=== PATIENT | male | born 1960 | race African-American/Black ===

== ENCOUNTER 2017-09-14 11:04 | Emergency (ER) | payer MEDICAID ==
[~2017-09-14] VITALS: Ht 182.9 cm; Wt 92.0 kg
[2017-09-14 11:37] LABS: BASOPHILS % 0.8 % (0.0-2.0); HEMATOCRIT. 43.5 % (42.0-52.0); HEMOGLOBIN. 14.5 g/dL (14.0-18.0); LYMPHOCYTES % 42.5 % (20.0-50.0); MEAN CORPUSCULAR HEMOGLOBIN 31.3 pg (28.0-32.0); MEAN CORPUSCULAR VOLUME 93.8 fL (80.0-94.0); MEAN PLATELET VOLUME 7.1 fl (7.4-10.4); NEUTROPHILS % 47.7 % (40.0-76.0); PLATELET 262 x1000/uL (130-400); RED BLOOD CELL COUNT 4.63 mill/uL (4.7-6.1); RED CELL DISTRIBUTION WIDTH 12.8 % (11.6-14.6)
[2017-09-14 11:42] LABS: PROTHROMBIN TIME 10.7 sec (9.4-11.6)
[2017-09-14 11:50] LABS: CARBON DIOXIDE 25 mEq/L (21-32); CHLORIDE 108 mEq/L (98-107); ETHANOL BLOOD < 10 mg/dL
[2017-09-14 12:37] LABS: CLARITY URINE CLEAR (CLEAR); COLOR URINE YELLOW (YELLOW); GLUCOSE URINE NEGATIVE (NEGATIVE); KETONES URINE NEGATIVE (NEGATIVE); LEUKOCYTE ESTERASE URINE NEGATIVE (NEGATIVE); NITRITE URINE NEGATIVE (NEGATIVE); OCCULT BLOOD URINE 2+ (NEGATIVE); PROTEIN URINE NEGATIVE (NEGATIVE); SPECIFIC GRAVITY URINE 1.032 (1.005-1.030)
[2017-09-14 12:48] VITALS: BP 155/94
[2017-09-14 13:00] LABS: *AMPHETAMINES SCREEN URINE NEGATIVE (NEGATIVE); *BARBITURATES SCREEN URINE NEGATIVE (NEGATIVE); *BENZODIAZEPINES SCREEN URINE NEGATIVE (NEGATIVE); *COCAINE SCREEN URINE NEGATIVE (NEGATIVE); CANNABINOID URINE SCREEN NEGATIVE (NEGATIVE); METHADONE URINE SCREEN NEGATIVE (NEGATIVE); OPIATES URINE SCREEN PRESUMTIVE POSITIVE (NEGATIVE); PHENCYCLIDINE URINE SCREEN NEGATIVE (NEGATIVE)
== END 2017-09-14 12:50 | disposition home or self-care (01) ==
LOC: EDBD 11:10 → ER 11:10
DX: T40.601A Poisoning by unspecified narcotics, accidental (unintentional), initial encounter (principal); G93.40 Encephalopathy, unspecified; F17.200 Nicotine dependence, unspecified, uncomplicated; Y92.89 Other specified places as the place of occurrence of the external cause
CPT/HCPCS: 36415; 70450; 80053; 80305; 81001; 85025; 85610; 93005; 99285; G0482

== ENCOUNTER 2018-11-12 05:22 | Emergency (ER) | payer MEDICAID ==
[~2018-11-12] VITALS: Ht 175.3 cm; Wt 86.0 kg
[2018-11-12] MEDS ORDERED: ASPIRIN 81MG TABLET PO ONE (08:30)
[2018-11-12 09:05] LABS: BASOPHILS % 0.8 % (0.0-2.0); EOSINOPHILS % 0.3 % (0.0-5.0); HEMATOCRIT. 51.9 % (42.0-52.0); HEMOGLOBIN. 17.1 g/dL (14.0-18.0); LYMPHOCYTES % 25.5 % (20.0-50.0); MEAN CORPUSCULAR HEMOGLOBIN 31.4 pg (28.0-32.0); MEAN CORPUSCULAR VOLUME 95.2 fL (80.0-94.0); MEAN PLATELET VOLUME 7.6 fl (7.4-10.4); MONOCYTES % 9.3 % (2.0-8.0); NEUTROPHILS % 64.1 % (40.0-76.0); PLATELET 287 x1000/uL (130-400); RED BLOOD CELL COUNT 5.45 mill/uL (4.7-6.1); RED CELL DISTRIBUTION WIDTH 14.6 % (11.6-14.6)
[2018-11-12 09:12] LABS: CHLORIDE 107 mEq/L (98-107)
[2018-11-12 09:48] LABS: PARTIAL THROMBOPLASTIN TIME 27.8 sec (23.4-31.0); PROTHROMBIN TIME 10.3 sec (9.1-11.1)
[2018-11-12 13:26] VITALS: BP 136/75
== END 2018-11-12 13:26 | disposition left against medical advice (07) ==
LOC: ER 05:22
DX: R07.89 Other chest pain (principal); F41.9 Anxiety disorder, unspecified; K21.9 Gastro-esophageal reflux disease without esophagitis; I10 Essential (primary) hypertension; F12.10 Cannabis abuse, uncomplicated; Z98.890 Other specified postprocedural states
CPT/HCPCS: 36415; 71045; 84484; 87804; 93005; 99284

== ENCOUNTER 2018-12-25 15:01 | Inpatient (IN) | payer MEDICAID ==
[~2018-12-25] VITALS: Ht 320 cm; Wt 86.2 kg
[2018-12-26] MEDS ORDERED: ASPIRIN 81MG TABLET PO ONE (06:45)
[2018-12-26 06:47] LABS: BASOPHILS % 1.2 % (0.0-2.0); HEMATOCRIT. 42.8 % (42.0-52.0); HEMOGLOBIN. 14.5 g/dL (14.0-18.0); MEAN CORPUSCULAR HEMOGLOBIN 32.4 pg (28.0-32.0); MEAN PLATELET VOLUME 7.7 fl (7.4-10.4); MONOCYTES % 8.1 % (2.0-8.0); NEUTROPHILS % 41.7 % (40.0-76.0); PLATELET 251 x1000/uL (130-400); RED BLOOD CELL COUNT 4.46 mill/uL (4.7-6.1); RED CELL DISTRIBUTION WIDTH 13.5 % (11.6-14.6)
[2018-12-26 06:48] LABS: CHLORIDE 108 mEq/L (98-107)
[2018-12-26 06:56] LABS: PROTHROMBIN TIME 9.8 sec (9.1-11.1)
[2018-12-26 10:25] LABS: CLARITY URINE CLEAR (CLEAR); COLOR URINE YELLOW (YELLOW); KETONES URINE TRACE (NEGATIVE); LEUKOCYTE ESTERASE URINE NEGATIVE (NEGATIVE); NITRITE URINE NEGATIVE (NEGATIVE); OCCULT BLOOD URINE NEGATIVE (NEGATIVE); PH URINE 5.5 (4.5-8.0); PROTEIN URINE NEGATIVE (NEGATIVE); SPECIFIC GRAVITY URINE 1.024 (1.005-1.030)
[2018-12-26 10:42] LABS: *AMPHETAMINES SCREEN URINE NEGATIVE (NEGATIVE); *BARBITURATES SCREEN URINE NEGATIVE (NEGATIVE); *BENZODIAZEPINES SCREEN URINE NEGATIVE (NEGATIVE)
[2018-12-26 10:43] LABS: *COCAINE SCREEN URINE NEGATIVE (NEGATIVE); CANNABINOID URINE SCREEN PRESUMTIVE POSITIVE (NEGATIVE); METHADONE URINE SCREEN NEGATIVE (NEGATIVE); OPIATES URINE SCREEN NEGATIVE (NEGATIVE); PHENCYCLIDINE URINE SCREEN PRESUMTIVE POSITIVE (NEGATIVE)
[2018-12-26] MEDS ORDERED: ONDANSETRON HCL 4MG/2ML INJ IV PRN (12:15)
[2018-12-26] MEDS ORDERED: ENOXAPARIN 40MG/0.4ML SYR SUBCUT NR (12:15)
[2018-12-26] MEDS ORDERED: LISI-604 MT (13:16)
[2018-12-26] MEDS ORDERED: ASPI-1159 MT (13:16)
[2018-12-26] MEDS ORDERED: ALPR2TAB2 MT (13:16)
[2018-12-26] MEDS ORDERED: HYDR-4009 MT (13:16)
[2018-12-26] MEDS ORDERED: OMEP40CA34 MT (13:16)
[2018-12-26] MEDS: ENOXAPARIN 40MG/0.4ML SYR SUBCUT NR (14:32)
[2018-12-26] MEDS: LISINOPRIL 20MG TABLET PO SCH (14:32)
[2018-12-26] MEDS: CLOPIDOGREL 75MG TABLET PO SCH (14:32)
[2018-12-26] MEDS: AMLODIPINE 5MG TABLET PO SCH ×2 (14:33→20:39)
[2018-12-26 15:00] VITALS: BP_SYST 141; BP_SYST 148; BP_DIAS 86; BP_DIAS 96
[2018-12-26 16:00] VITALS: BP 148/86
[2018-12-26 20:00] VITALS: BP 153/91
[2018-12-26] MEDS: ATORVASTATIN CALCIUM 10MG TABLET PO SCH (20:39)
[2018-12-26] MEDS: HYDROCODONE/ACETAMINOPHEN 5/325MG TABLET PO PRN (20:40)
[2018-12-26] MEDS: ALPRAZOLAM 0.5 MG TABLET PO PRN (21:33)
[2018-12-27 04:50] VITALS: BP 115/80
[2018-12-27 06:49] LABS: HEMATOCRIT. 43.4 % (42.0-52.0); HEMOGLOBIN. 14.4 g/dL (14.0-18.0); MEAN CORPUSCULAR HEMOGLOBIN 31.6 pg (28.0-32.0); MEAN CORPUSCULAR VOLUME 95.1 fL (80.0-94.0); MEAN PLATELET VOLUME 7.4 fl (7.4-10.4); PLATELET 260 x1000/uL (130-400); RED BLOOD CELL COUNT 4.56 mill/uL (4.7-6.1); RED CELL DISTRIBUTION WIDTH 13.4 % (11.6-14.6)
[2018-12-27 07:14] LABS: CHLORIDE 107 mEq/L (98-107)
[2018-12-27 07:21] LABS: LDL CHOLESTEROL 101 mg/dL (5-100)
[2018-12-27 07:22] LABS: HDL CHOLESTEROL 59 mg/dL (40-59)
[2018-12-27 08:00] VITALS: BP 126/80
[2018-12-27] MEDS: LISINOPRIL 20MG TABLET PO SCH (08:21)
[2018-12-27] MEDS: ASPIRIN 81MG EC TABLET PO SCH (08:21)
[2018-12-27] MEDS: AMLODIPINE 5MG TABLET PO SCH ×2 (08:21→20:43)
[2018-12-27] MEDS: CLOPIDOGREL 75MG TABLET PO SCH (08:21)
[2018-12-27] MEDS: HYDROCODONE/ACETAMINOPHEN 5/325MG TABLET PO PRN ×3 (08:22→20:44)
[2018-12-27 11:40] LABS: PLATELET ESTIMATE NORMAL
[2018-12-27 12:00] VITALS: BP 104/57
[2018-12-27] MEDS: ENOXAPARIN 40MG/0.4ML SYR SUBCUT NR (15:57)
[2018-12-27 16:00] VITALS: BP 109/64
[2018-12-27 20:00] VITALS: BP 115/72
[2018-12-27] MEDS: ATORVASTATIN CALCIUM 10MG TABLET PO SCH (20:44)
[2018-12-27] MEDS: ALPRAZOLAM 0.5 MG TABLET PO PRN (20:44)
[2018-12-28] VITALS: BP 110/76
[2018-12-28 04:00] VITALS: BP 116/79
[2018-12-28 08:00] VITALS: BP 108/71
[2018-12-28] MEDS: ASPIRIN 81MG EC TABLET PO SCH (08:18)
[2018-12-28] MEDS: HYDROCODONE/ACETAMINOPHEN 5/325MG TABLET PO PRN (08:24)
[2018-12-28] MEDS: AMLODIPINE 5MG TABLET PO SCH (09:00)
[2018-12-28] MEDS: LISINOPRIL 20MG TABLET PO SCH (09:00)
[2018-12-28] MEDS: CLOPIDOGREL 75MG TABLET PO SCH (09:46)
[2018-12-28 10:19] VITALS: BP 108/71
== END 2018-12-28 12:56 | disposition home or self-care (01) | DRG 203 ==
LOC: ER 16:16 → 6WST 12-26 08:55 → EDBEDREQTM 12-26 08:57 → EDBEDREQ 12-26 08:57 → ENRESERV 12-26 09:22
PROVIDERS: ADMIT Internal Medicine; ATTEND Internal Medicine
DX: M94.0 Chondrocostal junction syndrome [Tietze] (principal); E83.51 Hypocalcemia; E78.5 Hyperlipidemia, unspecified; G89.29 Other chronic pain; F41.9 Anxiety disorder, unspecified; F12.90 Cannabis use, unspecified, uncomplicated; K21.9 Gastro-esophageal reflux disease without esophagitis; M54.9 Dorsalgia, unspecified; I10 Essential (primary) hypertension; Z82.3 Family history of stroke; Z82.49 Family history of ischemic heart disease and other diseases of the circulatory system; Z95.5 Presence of coronary angioplasty implant and graft; Z79.02 Long term (current) use of antithrombotics/antiplatelets; Z83.3 Family history of diabetes mellitus; Z91.19 Patient's noncompliance with other medical treatment and regimen; Z79.01 Long term (current) use of anticoagulants; Z79.82 Long term (current) use of aspirin; Z79.899 Other long term (current) drug therapy
CPT/HCPCS: 36415; 71045; 80061; 80305; 83036; 83735; 83880; 84484; 85007; 85027; 93005; 93306; 96372; 99285; J1650

== ENCOUNTER 2019-04-01 09:15 | Emergency (ER) | payer MEDICAID ==
[~2019-04-01] VITALS: Ht 182.9 cm; Wt 83.0 kg
[~2019-04-01 09:15] MED LIST: ALPR2TAB2 MT; ASPI-1393 MT; HYDR-4009 MT; LISI-604 MT; OMEP40CA34 MT
[2019-04-01 10:26] LABS: BASOPHILS % 1.1 % (0.0-2.0); EOSINOPHILS % 0.8 % (0.0-5.0); HEMATOCRIT. 40.8 % (42.0-52.0); HEMOGLOBIN. 13.7 g/dL (14.0-18.0); LYMPHOCYTES % 49.5 % (20.0-50.0); MEAN CORPUSCULAR HEMOGLOBIN 32.4 pg (28.0-32.0); MEAN CORPUSCULAR VOLUME 96.2 fL (80.0-94.0); MEAN PLATELET VOLUME 7.1 fl (7.4-10.4); MONOCYTES % 9.2 % (2.0-8.0); NEUTROPHILS % 39.4 % (40.0-76.0); PLATELET 275 x1000/uL (130-400); RED BLOOD CELL COUNT 4.24 mill/uL (4.7-6.1); RED CELL DISTRIBUTION WIDTH 13.1 % (11.6-14.6)
[2019-04-01 10:28] LABS: CHLORIDE 105 mEq/L (98-107)
[2019-04-01] MEDS ORDERED: KETOROLAC 30MG/ML VIAL IV ONE (11:15)
[2019-04-01] MEDS ORDERED: KETOROLAC 15MG/ML VIAL IV NR (11:15)
[2019-04-01] MEDS ORDERED: HYDROCODONE/ACETAMINOPHEN 5/325MG TABLET PO ONE (11:45)
[2019-04-01 14:00] VITALS: BP 145/95
== END 2019-04-01 14:30 | disposition home or self-care (01) ==
LOC: ER 09:15
DX: R07.9 Chest pain, unspecified (principal); I10 Essential (primary) hypertension; K21.9 Gastro-esophageal reflux disease without esophagitis; F17.200 Nicotine dependence, unspecified, uncomplicated; F41.9 Anxiety disorder, unspecified; F12.10 Cannabis abuse, uncomplicated; F16.10 Hallucinogen abuse, uncomplicated; Z79.899 Other long term (current) drug therapy
CPT/HCPCS: 36415; 71045; 80053; 83690; 83880; 84484; 85025; 93005; 99284; J1885; Z7610

== ENCOUNTER 2019-08-08 16:12 | Emergency (ER) | payer MEDICAID ==
[~2019-08-08] VITALS: Ht 172.7 cm; Wt 88.0 kg
[2019-08-08 21:04] VITALS: BP 159/96
== END 2019-08-08 21:05 | disposition home or self-care (01) ==
LOC: ER 16:12
DX: J06.9 Acute upper respiratory infection, unspecified (principal); F41.9 Anxiety disorder, unspecified; K21.9 Gastro-esophageal reflux disease without esophagitis; I10 Essential (primary) hypertension; F17.210 Nicotine dependence, cigarettes, uncomplicated; F12.10 Cannabis abuse, uncomplicated; F16.10 Hallucinogen abuse, uncomplicated; Z98.890 Other specified postprocedural states
CPT/HCPCS: 71045; 93005; 99283

== ENCOUNTER 2021-02-01 13:05 | Emergency (ER) | payer MEDICAID ==
[~2021-02-01] VITALS: Ht 177.8 cm; Wt 86.0 kg
[~2021-02-01 13:05] MED LIST changes: -ASPI-1393 MT; +ASPI-1497 MT; +CLOP-31 MT; +GABA-532 MT; -LISI-604 MT; +LISI20TA31 MT; +OMEP40CA12 MT; -OMEP40CA34 MT; +TAMS-11 MT
[2021-02-01] MEDS ORDERED: KETOROLAC 60MG/2ML VIAL IM STA (14:16)
[2021-02-01] MEDS ORDERED: NAPR-681 PO (16:03)
[2021-02-01 16:31] VITALS: BP 129/74
== END 2021-02-01 16:32 | disposition home or self-care (01) ==
LOC: ER 13:05
DX: M25.511 Pain in right shoulder (principal); M25.551 Pain in right hip; M54.5 Low back pain; W01.0XXA Fall on same level from slipping, tripping and stumbling without subsequent striking against object, initial encounter; Y93.89 Activity, other specified; Y92.89 Other specified places as the place of occurrence of the external cause; Y99.8 Other external cause status; F41.9 Anxiety disorder, unspecified; I25.10 Atherosclerotic heart disease of native coronary artery without angina pectoris; K21.9 Gastro-esophageal reflux disease without esophagitis; I10 Essential (primary) hypertension; Z87.440 Personal history of urinary (tract) infections; Z87.09 Personal history of other diseases of the respiratory system; F12.10 Cannabis abuse, uncomplicated; Z79.899 Other long term (current) drug therapy
CPT/HCPCS: 72100; 73030; 73060; 73090; 73502; 73560; 96372; 99284; J1885

== ENCOUNTER 2021-03-04 11:42 | Inpatient (IN) | payer MEDICAID ==
[~2021-03-04] VITALS: Ht 172.7 cm; Wt 92.5 kg
[~2021-03-04 11:42] MED LIST changes: +NAPR-681 PO
[2021-03-04] MEDS ORDERED: ASPIRIN 81MG TABLET PO ONE (13:30)
[2021-03-04] MEDS ORDERED: NITROGLYCERIN 0.4MG TABLET SL SL PRN (13:30)
[2021-03-04 13:52] LABS: BASOPHILS % 0.4 % (0.0-2.0); EOSINOPHILS % 0.6 % (0.0-5.0); HEMATOCRIT. 40.1 % (42.0-52.0); HEMOGLOBIN. 13.7 g/dL (14.0-18.0); LYMPHOCYTES % 39.2 % (20.0-50.0); MEAN CORPUSCULAR VOLUME 93.2 fL (80.0-94.0); MEAN PLATELET VOLUME 7.4 fl (7.4-10.4); MONOCYTES % 10.2 % (2.0-8.0); NEUTROPHILS % 49.6 % (40.0-76.0); PLATELET 246 x1000/uL (130-400); RED CELL DISTRIBUTION WIDTH 13.3 % (11.6-14.6)
[2021-03-04 13:58] LABS: CHLORIDE 108 mEq/L (98-107)
[2021-03-04 16:37] LABS: *BARBITURATES SCREEN URINE NEGATIVE (NEGATIVE); *BENZODIAZEPINES SCREEN URINE NEGATIVE (NEGATIVE); *COCAINE SCREEN URINE NEGATIVE (NEGATIVE); METHADONE URINE SCREEN NEGATIVE (NEGATIVE); OPIATES URINE SCREEN NEGATIVE (NEGATIVE); PHENCYCLIDINE URINE SCREEN PRESUMTIVE POSITIVE (NEGATIVE)
[2021-03-04 16:38] LABS: *AMPHETAMINES SCREEN URINE NEGATIVE (NEGATIVE); CANNABINOID URINE SCREEN PRESUMTIVE POSITIVE (NEGATIVE)
[2021-03-04] MEDS ORDERED: ACETAMINOPHEN 325MG TABLET PO PRN (23:15)
[2021-03-04] MEDS ORDERED: ZOLPIDEM TARTRATE 5MG TABLET PO PRN (23:15)
[2021-03-04] MEDS ORDERED: ALPRAZOLAM 0.5 MG TABLET PO PRN (23:15)
[2021-03-04] MEDS ORDERED: CLONIDINE 0.1MG TABLET PO PRN (23:15)
[2021-03-05] VITALS: BP 116/73
[2021-03-05 04:00] VITALS: BP 115/68
[2021-03-05] MEDS ORDERED: OMEPRAZOLE 20MG CAPSULE EXTENDED RELEASE PO SCH (07:20)
[2021-03-05 07:32] LABS: BASOPHILS % 0.3 % (0.0-2.0); EOSINOPHILS % 1.3 % (0.0-5.0); HEMATOCRIT. 42.4 % (42.0-52.0); HEMOGLOBIN. 14.5 g/dL (14.0-18.0); LYMPHOCYTES % 39.5 % (20.0-50.0); MEAN CORPUSCULAR HEMOGLOBIN 32.3 pg (28.0-32.0); MEAN CORPUSCULAR VOLUME 94.4 fL (80.0-94.0); MEAN PLATELET VOLUME 7.7 fl (7.4-10.4); MONOCYTES % 11.2 % (2.0-8.0); NEUTROPHILS % 47.7 % (40.0-76.0); PLATELET 227 x1000/uL (130-400); RED BLOOD CELL COUNT 4.48 mill/uL (4.7-6.1); RED CELL DISTRIBUTION WIDTH 13.5 % (11.6-14.6)
[2021-03-05 07:50] LABS: LDL CHOLESTEROL 116 mg/dL (5-100)
[2021-03-05 07:52] LABS: CREATINE KINASE 132 IU/L (39-308)
[2021-03-05 07:53] LABS: HDL CHOLESTEROL 57 mg/dL (40-59)
[2021-03-05 07:55] LABS: CREATINE KINASE MB FRACTION 1.4 ng/mL (0.5-3.6)
[2021-03-05 08:00] VITALS: BP 135/85
[2021-03-05] MEDS ORDERED: LISINOPRIL 20MG TABLET PO SCH (09:00)
[2021-03-05] MEDS ORDERED: ENOXAPARIN 40MG/0.4ML SYR SUBCUT SCH (09:00)
[2021-03-05] MEDS ORDERED: CLOPIDOGREL 75MG TABLET PO SCH (09:00)
[2021-03-05] MEDS ORDERED: TAMSULOSIN HCL 0.4MG SR CAPSULE PO SCH (09:00)
[2021-03-05] MEDS ORDERED: ASPIRIN 81MG EC TABLET PO SCH (09:00)
[2021-03-05] MEDS: HYDROCODONE/ACETAMINOPHEN 5/325MG TABLET PO PRN ×2 (09:34→17:16)
[2021-03-05] MEDS: GABAPENTIN 300MG CAPSULE PO SCH ×3 (09:34→17:16)
[2021-03-05 12:00] VITALS: BP 120/71
[2021-03-05 16:00] VITALS: BP 133/83
[2021-03-05 17:24] LABS: CREATINE KINASE 114 IU/L (39-308)
[2021-03-05 17:25] LABS: CREATINE KINASE MB FRACTION < 1.0 ng/mL (0.5-3.6)
[2021-03-05 18:54] VITALS: BP 133/83
== END 2021-03-05 19:10 | disposition home or self-care (01) | DRG 203 ==
LOC: ER 11:42 → 6WST 16:10 → EDBEDREQ 16:16 → ENRESERV 22:15
PROVIDERS: ADMIT Internal Medicine; ATTEND Internal Medicine
DX: M94.0 Chondrocostal junction syndrome [Tietze] (principal); E66.9 Obesity, unspecified; I25.10 Atherosclerotic heart disease of native coronary artery without angina pectoris; F12.90 Cannabis use, unspecified, uncomplicated; F16.10 Hallucinogen abuse, uncomplicated; F17.210 Nicotine dependence, cigarettes, uncomplicated; I10 Essential (primary) hypertension; F10.20 Alcohol dependence, uncomplicated; K21.9 Gastro-esophageal reflux disease without esophagitis; F41.9 Anxiety disorder, unspecified; N40.0 Benign prostatic hyperplasia without lower urinary tract symptoms; Z95.5 Presence of coronary angioplasty implant and graft; Z71.6 Tobacco abuse counseling; Z71.41 Alcohol abuse counseling and surveillance of alcoholic; Z87.440 Personal history of urinary (tract) infections; Z79.01 Long term (current) use of anticoagulants; Z79.82 Long term (current) use of aspirin; Z79.899 Other long term (current) drug therapy; Z68.31 Body mass index [BMI] 31.0-31.9, adult
CPT/HCPCS: 36415; 71045; 80053; 80061; 80305; 82550; 82553; 83880; 84484; 85025; 93005; 93306; 99285; J1650

== ENCOUNTER 2021-06-22 02:20 | Emergency (ER) | payer MEDICAID ==
[~2021-06-22] VITALS: Ht 172.7 cm; Wt 93.0 kg
[~2021-06-22 02:20] MED LIST changes: -CLOP-31 MT; +CLOP75TA4 MT
[2021-06-22 02:46] VITALS: BP 146/88
== END 2021-06-22 03:43 | disposition home or self-care (01) ==
LOC: ER 03:19
DX: R21 Rash and other nonspecific skin eruption (principal); I10 Essential (primary) hypertension; F12.10 Cannabis abuse, uncomplicated; F16.10 Hallucinogen abuse, uncomplicated
CPT/HCPCS: 99281

== ENCOUNTER 2022-04-17 11:25 | Emergency (ER) | payer MEDICAID ==
[~2022-04-17] VITALS: Ht 172.7 cm; Wt 93.0 kg
[~2022-04-17 11:25] MED LIST changes: +CLOP-31 MT; -CLOP75TA4 MT; -OMEP40CA12 MT; +OMEP40CA20 MT
[2022-04-17 11:32] VITALS: BP 117/78
[2022-04-17] MEDS ORDERED: PENICILLIN G BENZATHINE 2,400,000 UNITS/4ML SYR IM ONE (12:30)
[2022-04-20 04:06] LABS: HIV SCREEN 4G Non Reactive (Non Reactive)
[2022-04-20 19:06] LABS: NEISSERIA GONORRHOEAE NAA Negative (Negative)
== END 2022-04-17 14:53 | disposition home or self-care (01) ==
LOC: ER 11:25
DX: A51.39 Other secondary syphilis of skin (principal); I25.10 Atherosclerotic heart disease of native coronary artery without angina pectoris; I10 Essential (primary) hypertension; N40.0 Benign prostatic hyperplasia without lower urinary tract symptoms; Z95.5 Presence of coronary angioplasty implant and graft
CPT/HCPCS: 86592; 87389; 87491; 87591; 96372; 99283; J0561

== ENCOUNTER 2024-02-06 18:50 | Inpatient (IN) | payer MEDICAID ==
[~2024-02-06] VITALS: Ht 175.3 cm; Wt 92.1 kg
[~2024-02-06 18:50] MED LIST changes: +AMLO10TA80 MT; +GABA-534 MT; -LISI20TA31 MT; +LISI40TA13 MT; +PHEN1CAP86 MT
[2024-02-06 19:33] LABS: BASOPHILS % 0.6 % (0.0-2.0); HEMATOCRIT. 44.2 % (42.0-52.0); HEMOGLOBIN. 14.7 g/dL (14.0-18.0); LYMPHOCYTES % 35.5 % (20.0-50.0); MEAN CORPUSCULAR HEMOGLOBIN 31.4 pg (28.0-32.0); MEAN CORPUSCULAR HGB CONC 33.2 g/dL (31.0-37.0); MEAN CORPUSCULAR VOLUME 94.7 fL (80.0-94.0); MEAN PLATELET VOLUME 7.4 fl (7.4-10.4); MONOCYTES % 9.8 % (2.0-8.0); NEUTROPHILS % 53.1 % (40.0-76.0); PLATELET 257 x1000/uL (130-400); RED BLOOD CELL COUNT 4.66 mill/uL (4.7-6.1); RED CELL DISTRIBUTION WIDTH 13.9 % (11.6-14.6); WHITE BLOOD COUNT 4.9 x1000/uL (4.5-11.0)
[2024-02-06 19:39] LABS: CHLORIDE 108 mEq/L (98-107); POTASSIUM 5.1 mEq/L (3.5-5.1); SODIUM 140 mEq/L (136-145)
[2024-02-06 19:40] LABS: CARBON DIOXIDE 25 mEq/L (21-32)
[2024-02-06 19:41] LABS: CALCIUM 9.2 mg/dL (8.7-10.4)
[2024-02-06 19:45] LABS: CREATININE 1.3 mg/dL (0.6-1.3); GLUCOSE 100 mg/dL (70-105)
[2024-02-06 19:46] LABS: ETHANOL BLOOD < 10 mg/dL (<10); TROPONIN I HIGH SENSITIVITY 5 ng/L (3.0-53); UREA NITROGEN BLOOD 8 mg/dL (9-23)
[2024-02-06 19:47] LABS: ACETAMINOPHEN < 2 ug/mL (10-30); ALANINE AMINOTRANSFERASE 25 IU/L (10-49); ALBUMIN 4.5 g/dL (3.2-4.8); ASPARTATE AMINOTRANSFERASE 28 IU/L (<34)
[2024-02-06 20:03] LABS: BILIRUBIN TOTAL 0.3 mg/dL (0.1-1.0); PROTEIN TOTAL 7.9 g/dL (6.0-8.3)
[2024-02-06] MEDS: LISINOPRIL 20MG TABLET PO SCH (23:30)
[2024-02-06] MEDS: NALOXONE HCL 0.4MG/ML 1ML VIAL IV PRN (23:31)
[2024-02-06] MEDS: LABETALOL 5MG/ML 4ML INJ IV NR (23:58)
[2024-02-07 03:05] LABS: CLARITY URINE CLOUDY (CLEAR); COLOR URINE YELLOW (YELLOW); GLUCOSE URINE NEGATIVE (NEGATIVE); KETONES URINE NEGATIVE (NEGATIVE); LEUKOCYTE ESTERASE URINE TRACE (NEGATIVE); NITRITE URINE NEGATIVE (NEGATIVE); OCCULT BLOOD URINE NEGATIVE (NEGATIVE); PH URINE 5.5 (4.5-8.0); PROTEIN URINE NEGATIVE (NEGATIVE); SPECIFIC GRAVITY URINE 1.017 (1.005-1.030); UROBILINOGEN URINE 0.2 E.U./dL (0.2-1.0)
[2024-02-07 03:27] LABS: *AMPHETAMINES SCREEN URINE NEGATIVE (NEGATIVE); *BARBITURATES SCREEN URINE NEGATIVE (NEGATIVE); *BENZODIAZEPINES SCREEN URINE NEGATIVE (NEGATIVE); *COCAINE SCREEN URINE NEGATIVE (NEGATIVE); CANNABINOID URINE SCREEN PRESUMPTIVE POSITIVE (NEGATIVE); ECSTASY MDMA SCREEN URINE NEGATIVE (NEGATIVE); METHADONE URINE SCREEN Neg (NEGATIVE); OPIATES URINE SCREEN NEGATIVE (NEGATIVE); PHENCYCLIDINE URINE SCREEN PRESUMTIVE POSITIVE (NEGATIVE)
[2024-02-07] MEDS: LABETALOL 5MG/ML 4ML INJ IV NR (03:48)
[2024-02-07 05:38] LABS: SQUAMOUS EPITHELIAL CELL URINE FEW /lpf (RARE/1+)
[2024-02-07 05:39] LABS: RBC URINE 0-2 /hpf (0-2); WBC URINE 0-2 /hpf (0-2)
[2024-02-07 05:40] LABS: BACTERIA URINE TRACE
[2024-02-07] MEDS: AMLODIPINE 5MG TABLET PO NR (07:12)
[2024-02-07] MEDS ORDERED: IPRATROPIUM/ALBUTEROL 0.5-3(2.5)MG/3ML NEB HHN PRN (07:15)
[2024-02-07] MEDS ORDERED: DOCUSATE SODIUM 100MG CAPSULE PO PRN (07:15)
[2024-02-07] MEDS ORDERED: SODIUM CHLORIDE 0.45% 1,000 ML IV SCH ×2 (07:15→07:45)
[2024-02-07 08:00] VITALS: BP 151/84; PULSE 96; RESP 18; TEMP 98
[2024-02-07] MEDS: HYDRALAZINE 20MG/ML VIAL IV PRN (08:09)
[2024-02-07] MEDS: CLONIDINE 0.1MG TABLET PO PRN (08:11)
[2024-02-07] MEDS ORDERED: HYDRALAZINE HCL 100MG TABLET PO SCH (09:00)
[2024-02-07 09:30] VITALS: BP 151/84; PULSE 96; RESP 18; TEMP 98
[2024-02-07] MEDS: CLOPIDOGREL 75MG TABLET PO SCH (10:26)
[2024-02-07] MEDS: ENOXAPARIN 40MG/0.4ML SYR SUBCUT SCH (10:26)
[2024-02-07] MEDS: LISINOPRIL 40MG TABLET PO SCH (10:26)
[2024-02-07] MEDS: TAMSULOSIN HCL 0.4MG SR CAPSULE PO SCH (10:26)
[2024-02-07] MEDS: ASPIRIN 81MG EC TABLET PO SCH (10:27)
[2024-02-07] MEDS: DEXT 5%/0.45% NACL 1000ML 1,000 ML IV SCH (10:27)
[2024-02-07] MEDS: HYDRALAZINE HCL 100MG TABLET PO SCH (10:59)
[2024-02-07 12:00] VITALS: BP 145/83; PULSE 94; RESP 18; TEMP 98.2
[2024-02-07] MEDS ORDERED: CLONIDINE 0.1MG TABLET PO PRN (13:15)
[2024-02-07 15:38] VITALS: BP 156/80; PULSE 102; RESP 17; TEMP 98
[2024-02-07] MEDS: SODIUM CHLORIDE 0.45% 1,000 ML IV SCH (15:41)
[2024-02-07 17:18] LABS: CLARITY URINE CLEAR (CLEAR); COLOR URINE YELLOW (YELLOW); GLUCOSE URINE NEGATIVE (NEGATIVE); KETONES URINE NEGATIVE (NEGATIVE); LEUKOCYTE ESTERASE URINE NEGATIVE (NEGATIVE); NITRITE URINE NEGATIVE (NEGATIVE); OCCULT BLOOD URINE NEGATIVE (NEGATIVE); PH URINE 6.5 (4.5-8.0); PROTEIN URINE NEGATIVE (NEGATIVE); SPECIFIC GRAVITY URINE 1.019 (1.005-1.030)
[2024-02-07 20:00] VITALS: BP 152/88; PULSE 100; RESP 22; TEMP 97
[2024-02-07] MEDS: ACETAMINOPHEN 325MG TABLET PO PRN (21:56)
[2024-02-07 22:24] LABS: TROPONIN I HIGH SENSITIVITY 12 ng/L (3.0-53)
[2024-02-08] VITALS (8 sets, daily range): BP systolic 138–169; BP diastolic 73–95; PULSE 104–121; RESP 18–20; TEMP 97.6–98.2
[2024-02-08 06:35] LABS: HEMATOCRIT 45.4 % (42.0-52.0); HEMOGLOBIN 15.2 g/dL (14.0-18.0); MEAN CORPUSCULAR HEMOGLOBIN 31.5 pg (28.0-32.0); MEAN CORPUSCULAR HGB CONC 33.6 g/dL (31.0-37.0); MEAN CORPUSCULAR VOLUME 93.7 fL (80.0-94.0); PLATELET 253 x1000/uL (130-400); RED BLOOD CELL COUNT 4.85 mill/uL (4.7-6.1); RED CELL DISTRIBUTION WIDTH 13.8 % (11.6-14.6); WHITE BLOOD COUNT 7.3 x1000/uL (4.5-11.0)
[2024-02-08] MEDS: PANTOPRAZOLE 40MG DR TABLET PO SCH (06:36)
[2024-02-08 06:37] LABS: CALCIUM 9.5 mg/dL (8.7-10.4); CARBON DIOXIDE 24 mEq/L (21-32); CHLORIDE 106 mEq/L (98-107); POTASSIUM 3.8 mEq/L (3.5-5.1); SODIUM 140 mEq/L (136-145)
[2024-02-08 06:41] LABS: CREATINE KINASE MB FRACTION 9.4 ng/mL (0.5-3.6); TROPONIN I HIGH SENSITIVITY 15 ng/L (3.0-53)
[2024-02-08 06:43] LABS: CREATININE 0.9 mg/dL (0.6-1.3); GLUCOSE 138 mg/dL (70-105); UREA NITROGEN BLOOD 8 mg/dL (9-23)
[2024-02-08 09:29] LABS: BG BASE EXCESS -0.4 mmol/L (-2.0-2.0); BG CARBOXYHEMOGLOBIN 0.9 % (0.5-1.5); BG FRACTION INSPIRED OXYGEN 28; BG HCO3 ACT 24.2 mmol/L (22.0-26.0); BG METHEMOGLOBIN 0.1 % (0.0-1.5); BG PCO2 39.8 mmHg (35.0-45.0); BG PH 7.402 (7.350-7.450); BG PO2 104.1 mmHg (75.0-100.0); BG SAMPLE SITE LEFT RADIAL; BG TOTAL HEMOGLOBIN 16.3 g/dL (12.0-18.0); BG VENT MODE NASAL CANNULA
[2024-02-08] MEDS: AMLODIPINE 10MG TABLET PO SCH (12:06)
[2024-02-08] MEDS ORDERED: CLONIDINE 0.3MG TABLET PO PRN (14:00)
[2024-02-08] MEDS ORDERED: IBUP-2029 PO (15:45)
[2024-02-08] MEDS ORDERED: PANT40TA51 PO (15:45)
[2024-02-08] MEDS ORDERED: FLUT15.844 BOTHNSTRLS (15:45)
[2024-02-08] MEDS ORDERED: ALBU6.7H15 INH (15:45)
[2024-02-08] MEDS ORDERED: DUTA0.5C37 PO (15:45)
[2024-02-08] MEDS: CLONIDINE 0.1MG TABLET PO SCH (20:57)
[2024-02-09] VITALS (56 sets, daily range): BP systolic 71–215; BP diastolic 46–126; PULSE 86–132; RESP 12–30; TEMP 98.2–99.2
[2024-02-09] MEDS ORDERED: CLONIDINE 0.1MG TABLET PO PRN (12:48)
[2024-02-09] MEDS: PROPOFOL 10MG/ML 100ML 100 ML IV PRN (13:04)
[2024-02-09] MEDS: NOREPINEPHRINE 8MG/250ML PMX 250 ML IV PRN (13:33)
[2024-02-09 14:26] LABS: BG BASE EXCESS -2.4 mmol/L (-2.0-2.0); BG CARBOXYHEMOGLOBIN 0.5 % (0.5-1.5); BG DEOXYHEMOGLOBIN 0.7 % (0.0-5.0); BG FRACTION INSPIRED OXYGEN 100; BG METHEMOGLOBIN 0.4 % (0.0-1.5); BG OXYGEN SATURATION 99.3 % (92.0-98.5); BG OXYHEMOGLOBIN 98.4 % (94.0-97.0); BG PCO2 42.2 mmHg (35.0-45.0); BG PH 7.355 (7.350-7.450); BG PO2 221.1 mmHg (75.0-100.0); BG SAMPLE SITE RIGHT RADIAL; BG VENT MODE VENT - AC
[2024-02-09 15:38] LABS: HEMATOCRIT. 41.4 % (42.0-52.0); HEMOGLOBIN. 13.7 g/dL (14.0-18.0); MEAN CORPUSCULAR HEMOGLOBIN 31.6 pg (28.0-32.0); MEAN CORPUSCULAR VOLUME 95.7 fL (80.0-94.0); MEAN PLATELET VOLUME 7.7 fl (7.4-10.4); PLATELET 265 x1000/uL (130-400); RED BLOOD CELL COUNT 4.32 mill/uL (4.7-6.1); RED CELL DISTRIBUTION WIDTH 13.9 % (11.6-14.6); WHITE BLOOD COUNT 15.8 x1000/uL (4.5-11.0)
[2024-02-09 15:43] LABS: DIFFERENTIAL COMMENT 1
[2024-02-09 15:46] LABS: POTASSIUM 4.4 mEq/L (3.5-5.1)
[2024-02-09 15:48] LABS: CALCIUM 8.4 mg/dL (8.7-10.4)
[2024-02-09 15:53] LABS: CREATINE KINASE MB FRACTION 7.5 ng/mL (0.5-3.6); CREATININE 1.6 mg/dL (0.6-1.3)
[2024-02-09 15:54] LABS: AMMONIA < 17 uMol/L (<32)
[2024-02-09 15:55] LABS: PHOSPHORUS 3.1 mg/dL (2.5-4.9)
[2024-02-09 16:35] LABS: PLATELET ESTIMATE NORMAL
[2024-02-09 17:11] LABS: *AMPHETAMINES SCREEN URINE NEGATIVE (NEGATIVE); *BARBITURATES SCREEN URINE NEGATIVE (NEGATIVE); *BENZODIAZEPINES SCREEN URINE NEGATIVE (NEGATIVE); *COCAINE SCREEN URINE NEGATIVE (NEGATIVE)
[2024-02-09 17:12] LABS: CANNABINOID URINE SCREEN NEGATIVE (NEGATIVE); ECSTASY MDMA SCREEN URINE NEGATIVE (NEGATIVE); METHADONE URINE SCREEN NEGATIVE (NEGATIVE); OPIATES URINE SCREEN NEGATIVE (NEGATIVE); PHENCYCLIDINE URINE SCREEN PRESUMTIVE POSITIVE (NEGATIVE)
[2024-02-09] MEDS: PHENYLEPHRINE 50 MG in DEXT 5% WATER 245 ML IV PRN (17:23)
[2024-02-09] MEDS: ATORVASTATIN CALCIUM 40MG TABLET PO SCH (20:39)
[2024-02-09] MEDS: MAGNESIUM 2 G PREMIX 50 ML IV NR (21:02)
[2024-02-10] VITALS (100 sets, daily range): BP systolic 87–183; BP diastolic 52–116; PULSE 84–118; RESP 15–24; TEMP 98.4–101.3
[2024-02-10 05:27] LABS: HEMATOCRIT 39.8 % (42.0-52.0); MEAN CORPUSCULAR HEMOGLOBIN 31.2 pg (28.0-32.0); MEAN CORPUSCULAR HGB CONC 32.7 g/dL (31.0-37.0); MEAN CORPUSCULAR VOLUME 95.3 fL (80.0-94.0); PLATELET 241 x1000/uL (130-400); RED BLOOD CELL COUNT 4.17 mill/uL (4.7-6.1); RED CELL DISTRIBUTION WIDTH 13.8 % (11.6-14.6)
[2024-02-10 05:32] LABS: CALCIUM 8.8 mg/dL (8.7-10.4)
[2024-02-10 05:37] LABS: CREATININE 1.6 mg/dL (0.6-1.3)
[2024-02-10] MEDS: FAMOTIDINE 20MG TABLET PO SCH (06:21)
[2024-02-10] MEDS: LISINOPRIL 20MG TABLET PO SCH (09:03)
[2024-02-10 10:18] LABS: BG BASE EXCESS -1.8 mmol/L (-2.0-2.0); BG DEOXYHEMOGLOBIN 1.8 % (0.0-5.0); BG FRACTION INSPIRED OXYGEN 40; BG HCO3 ACT 21.5 mmol/L (22.0-26.0); BG METHEMOGLOBIN 0.7 % (0.0-1.5); BG OXYGEN SATURATION 98.2 % (92.0-98.5); BG OXYHEMOGLOBIN 97.5 % (94.0-97.0); BG PCO2 32.4 mmHg (35.0-45.0); BG PH 7.439 (7.350-7.450); BG PO2 120.7 mmHg (75.0-100.0); BG SAMPLE SITE RIGHT RADIAL; BG VENT MODE VENT - AC
[2024-02-10] MEDS ORDERED: TETRACAINE/BENZOCAINE/BUTAMBEN 20 GM SPRAY MM ONE (13:55)
[2024-02-10] MEDS ORDERED: LIDOCAINE 2% 6ML GLYDO MM ONE (13:57)
[2024-02-10] MEDS: PROPOFOL 10MG/ML 100ML 100 ML IV PRN (15:24)
[2024-02-10] MEDS: ACETAMINOPHEN 325MG TABLET PO PRN (18:35)
[2024-02-11] VITALS (92 sets, daily range): BP systolic 73–162; BP diastolic 48–80; PULSE 86–124; RESP 13–28; TEMP 98.5–102
[2024-02-11 04:49] LABS: BASOPHILS % 0.3 % (0.0-2.0); HEMATOCRIT. 40.6 % (42.0-52.0); HEMOGLOBIN. 13.6 g/dL (14.0-18.0); LYMPHOCYTES % 8.3 % (20.0-50.0); MEAN CORPUSCULAR HEMOGLOBIN 31.8 pg (28.0-32.0); MEAN CORPUSCULAR HGB CONC 33.5 g/dL (31.0-37.0); MEAN PLATELET VOLUME 7.6 fl (7.4-10.4); MONOCYTES % 12.3 % (2.0-8.0); NEUTROPHILS % 79.1 % (40.0-76.0); PLATELET 244 x1000/uL (130-400); RED BLOOD CELL COUNT 4.27 mill/uL (4.7-6.1); RED CELL DISTRIBUTION WIDTH 13.7 % (11.6-14.6); WHITE BLOOD COUNT 12.6 x1000/uL (4.5-11.0)
[2024-02-11 04:55] LABS: CARBON DIOXIDE 23 mEq/L (21-32); CHLORIDE 105 mEq/L (98-107); POTASSIUM 4.3 mEq/L (3.5-5.1); SODIUM 137 mEq/L (136-145)
[2024-02-11 04:57] LABS: CALCIUM 8.7 mg/dL (8.7-10.4)
[2024-02-11 05:00] LABS: CREATININE 1.3 mg/dL (0.6-1.3)
[2024-02-11 05:01] LABS: GLUCOSE 125 mg/dL (70-105); TRIGLYCERIDE 113 mg/dL (0-150); UREA NITROGEN BLOOD 25 mg/dL (9-23)
[2024-02-11 08:54] LABS: BG BASE EXCESS -2.7 mmol/L (-2.0-2.0); BG CARBOXYHEMOGLOBIN 0.3 % (0.5-1.5); BG DEOXYHEMOGLOBIN 1.9 % (0.0-5.0); BG FRACTION INSPIRED OXYGEN 40; BG HCO3 ACT 20.5 mmol/L (22.0-26.0); BG METHEMOGLOBIN 0.3 % (0.0-1.5); BG OXYGEN SATURATION 98.1 % (92.0-98.5); BG OXYHEMOGLOBIN 97.5 % (94.0-97.0); BG PCO2 31.1 mmHg (35.0-45.0); BG PH 7.437 (7.350-7.450); BG PO2 121.1 mmHg (75.0-100.0); BG SAMPLE SITE RIGHT RADIAL; BG TOTAL HEMOGLOBIN 13.3 g/dL (12.0-18.0); BG VENT MODE VENT - AC
[2024-02-11] MEDS ORDERED: NOREPINEPHRINE 8MG/250ML PMX 250 ML IV SCH (14:15)
[2024-02-11] MEDS ORDERED: ACETAMINOPHEN 650MG/20.3ML UDC PO PRN (14:15)
[2024-02-11] MEDS: PIPERACILLIN/TAZO 3.375G/50ML 50 ML IV SCH (17:03)
[2024-02-11] MEDS: VANCOMYCIN 1,750 MG in DEXT 5% WATER 500 ML IV NR (18:04)
[2024-02-12] VITALS (86 sets, daily range): BP systolic 98–169; BP diastolic 58–133; PULSE 90–139; RESP 16–28; TEMP 98.7–100.3
[2024-02-12] MEDS: CLONIDINE 0.3MG TABLET PO PRN (00:43)
[2024-02-12 05:19] LABS: HEMATOCRIT 38.6 % (42.0-52.0); HEMOGLOBIN 12.7 g/dL (14.0-18.0); MEAN CORPUSCULAR HEMOGLOBIN 31.5 pg (28.0-32.0); MEAN CORPUSCULAR VOLUME 95.4 fL (80.0-94.0); PLATELET 247 x1000/uL (130-400); RED BLOOD CELL COUNT 4.04 mill/uL (4.7-6.1); RED CELL DISTRIBUTION WIDTH 13.5 % (11.6-14.6); WHITE BLOOD COUNT 14.5 x1000/uL (4.5-11.0)
[2024-02-12 05:45] LABS: CARBON DIOXIDE 23 mEq/L (21-32); CHLORIDE 105 mEq/L (98-107); POTASSIUM 4.3 mEq/L (3.5-5.1); SODIUM 137 mEq/L (136-145)
[2024-02-12 05:46] LABS: CALCIUM 8.5 mg/dL (8.7-10.4)
[2024-02-12 05:51] LABS: CREATININE 1.3 mg/dL (0.6-1.3); GLUCOSE 110 mg/dL (70-105); UREA NITROGEN BLOOD 21 mg/dL (9-23)
[2024-02-12] MEDS ORDERED: PHENYLEPHRINE 50MG/250ML PMX 250 ML IV PRN (06:15)
[2024-02-12 09:00] LABS: BG BASE EXCESS -1.6 mmol/L (-2.0-2.0); BG CARBOXYHEMOGLOBIN 0.4 % (0.5-1.5); BG DEOXYHEMOGLOBIN 1.7 % (0.0-5.0); BG FRACTION INSPIRED OXYGEN 40; BG HCO3 ACT 21.9 mmol/L (22.0-26.0); BG METHEMOGLOBIN 0.3 % (0.0-1.5); BG OXYGEN SATURATION 98.3 % (92.0-98.5); BG OXYHEMOGLOBIN 97.6 % (94.0-97.0); BG PH 7.439 (7.350-7.450); BG PO2 111.1 mmHg (75.0-100.0); BG SAMPLE SITE LEFT RADIAL; BG TOTAL HEMOGLOBIN 13.1 g/dL (12.0-18.0); BG TOTAL RESPIRATORY RATE 25 b/min; BG VENT MODE VENT - AC
[2024-02-12] MEDS: VANCOMYCIN 750MG PREMIX 150 ML IV SCH (10:58)
[2024-02-12] MEDS: METOPROLOL TARTRATE 50MG TABLET PO SCH (23:53)
[2024-02-13] VITALS (51 sets, daily range): BP systolic 81–157; BP diastolic 52–88; PULSE 77–115; RESP 11–30; TEMP 98.3–100.1
[2024-02-13 04:57] LABS: CHLORIDE 107 mEq/L (98-107); POTASSIUM 3.9 mEq/L (3.5-5.1); SODIUM 138 mEq/L (136-145)
[2024-02-13 04:58] LABS: CALCIUM 8.6 mg/dL (8.7-10.4); CARBON DIOXIDE 23 mEq/L (21-32)
[2024-02-13 05:03] LABS: CREATININE 1.1 mg/dL (0.6-1.3); GLUCOSE 132 mg/dL (70-105); HEMATOCRIT 40.8 % (42.0-52.0); HEMOGLOBIN 13.5 g/dL (14.0-18.0); MEAN CORPUSCULAR HEMOGLOBIN 31.4 pg (28.0-32.0); MEAN CORPUSCULAR VOLUME 94.9 fL (80.0-94.0); PLATELET 270 x1000/uL (130-400); RED CELL DISTRIBUTION WIDTH 13.5 % (11.6-14.6); UREA NITROGEN BLOOD 21 mg/dL (9-23); WHITE BLOOD COUNT 16.2 x1000/uL (4.5-11.0)
[2024-02-13 09:28] LABS: BG BASE EXCESS -0.9 mmol/L (-2.0-2.0); BG CARBOXYHEMOGLOBIN 0.3 % (0.5-1.5); BG DEOXYHEMOGLOBIN 2.2 % (0.0-5.0); BG FRACTION INSPIRED OXYGEN 40; BG HCO3 ACT 22.8 mmol/L (22.0-26.0); BG OXYGEN SATURATION 97.8 % (92.0-98.5); BG OXYHEMOGLOBIN 97.5 % (94.0-97.0); BG PCO2 35.1 mmHg (35.0-45.0); BG PH 7.431 (7.350-7.450); BG PO2 105.8 mmHg (75.0-100.0); BG SAMPLE SITE RIGHT RADIAL; BG TOTAL HEMOGLOBIN 13.9 g/dL (12.0-18.0); BG VENT MODE VENT - AC
[2024-02-13] MEDS: ASPIRIN 81MG TABLET PO SCH (10:31)
[2024-02-13] MEDS ORDERED: TETRACAINE/BENZOCAINE/BUTAMBEN 20 GM SPRAY MM ONE (10:40)
[2024-02-13] MEDS ORDERED: LIDOCAINE 2% 6ML GLYDO MM ONE (10:40)
[2024-02-13] MEDS ORDERED: LIDOCAINE HCL 1% 10 MG/ML 10ML VIAL ONE (10:59)
[2024-02-13] MEDS ORDERED: PROPOFOL 200MG/20ML VIAL IV ONE (11:00)
[2024-02-13] MEDS: VANCOMYCIN 1GM/200ML PMX (BAXTER) IV SCH (17:20)
[2024-02-14] VITALS (43 sets, daily range): BP systolic 94–141; BP diastolic 53–80; PULSE 76–110; RESP 19–34; TEMP 96.7–99.6
[2024-02-14 08:58] LABS: HEMATOCRIT. 33.5 % (42.0-52.0); MEAN CORPUSCULAR HEMOGLOBIN 31.2 pg (28.0-32.0); MEAN CORPUSCULAR HGB CONC 32.8 g/dL (31.0-37.0); MEAN CORPUSCULAR VOLUME 95.3 fL (80.0-94.0); MEAN PLATELET VOLUME 7.6 fl (7.4-10.4); PLATELET 287 x1000/uL (130-400); RED BLOOD CELL COUNT 3.51 mill/uL (4.7-6.1); RED CELL DISTRIBUTION WIDTH 13.3 % (11.6-14.6); WHITE BLOOD COUNT 13.6 x1000/uL (4.5-11.0)
[2024-02-14 09:05] LABS: CHLORIDE 109 mEq/L (98-107); POTASSIUM 3.8 mEq/L (3.5-5.1); SODIUM 137 mEq/L (136-145)
[2024-02-14 09:06] LABS: CARBON DIOXIDE 24 mEq/L (21-32)
[2024-02-14 09:07] LABS: CALCIUM 8.5 mg/dL (8.7-10.4)
[2024-02-14 09:11] LABS: GLUCOSE 156 mg/dL (70-105)
[2024-02-14 09:12] LABS: UREA NITROGEN BLOOD 24 mg/dL (9-23)
[2024-02-14 09:20] LABS: DIFFERENTIAL COMMENT 1
[2024-02-14 15:05] LABS: PLATELET ESTIMATE NORMAL
[2024-02-15] VITALS (33 sets, daily range): BP systolic 88–181; BP diastolic 60–78; PULSE 73–99; RESP 0–32; TEMP 98.4–99.6
[2024-02-15] MEDS: SCOPOLAMINE HYDROBROMIDE PATCH 72HR TD NR (01:08)
[2024-02-15 05:18] LABS: HEMATOCRIT 34.3 % (42.0-52.0); HEMOGLOBIN 11.5 g/dL (14.0-18.0); MEAN CORPUSCULAR HEMOGLOBIN 31.8 pg (28.0-32.0); MEAN CORPUSCULAR HGB CONC 33.6 g/dL (31.0-37.0); MEAN CORPUSCULAR VOLUME 94.6 fL (80.0-94.0); PLATELET 318 x1000/uL (130-400); RED BLOOD CELL COUNT 3.62 mill/uL (4.7-6.1); RED CELL DISTRIBUTION WIDTH 13.3 % (11.6-14.6); WHITE BLOOD COUNT 11.9 x1000/uL (4.5-11.0)
[2024-02-15 05:25] LABS: CHLORIDE 106 mEq/L (98-107); POTASSIUM 3.9 mEq/L (3.5-5.1); SODIUM 140 mEq/L (136-145)
[2024-02-15 05:26] LABS: CALCIUM 8.5 mg/dL (8.7-10.4); CARBON DIOXIDE 25 mEq/L (21-32)
[2024-02-15 05:31] LABS: GLUCOSE 129 mg/dL (70-105); UREA NITROGEN BLOOD 20 mg/dL (9-23)
[2024-02-15 10:04] LABS: BG BASE EXCESS 0.1 mmol/L (-2.0-2.0); BG CARBOXYHEMOGLOBIN 0.3 % (0.5-1.5); BG DEOXYHEMOGLOBIN 2.1 % (0.0-5.0); BG FRACTION INSPIRED OXYGEN 40; BG METHEMOGLOBIN 0.3 % (0.0-1.5); BG OXYGEN SATURATION 97.9 % (92.0-98.5); BG OXYHEMOGLOBIN 97.3 % (94.0-97.0); BG PCO2 36.2 mmHg (35.0-45.0); BG PH 7.439 (7.350-7.450); BG PO2 105.8 mmHg (75.0-100.0); BG SAMPLE SITE RIGHT RADIAL; BG TOTAL HEMOGLOBIN 12.5 g/dL (12.0-18.0); BG VENT MODE VENT - AC
[2024-02-16] VITALS (51 sets, daily range): BP systolic 102–236; BP diastolic 59–142; PULSE 70–140; RESP 18–47; TEMP 98.4–99
[2024-02-16 05:47] LABS: HEMATOCRIT 35.6 % (42.0-52.0); HEMOGLOBIN 11.8 g/dL (14.0-18.0); MEAN CORPUSCULAR HEMOGLOBIN 31.3 pg (28.0-32.0); MEAN CORPUSCULAR HGB CONC 33.1 g/dL (31.0-37.0); MEAN CORPUSCULAR VOLUME 94.3 fL (80.0-94.0); PLATELET 367 x1000/uL (130-400); RED BLOOD CELL COUNT 3.77 mill/uL (4.7-6.1); RED CELL DISTRIBUTION WIDTH 13.3 % (11.6-14.6); WHITE BLOOD COUNT 11.8 x1000/uL (4.5-11.0)
[2024-02-16 05:53] LABS: CARBON DIOXIDE 26 mEq/L (21-32); CHLORIDE 105 mEq/L (98-107); POTASSIUM 3.8 mEq/L (3.5-5.1); SODIUM 138 mEq/L (136-145)
[2024-02-16 05:58] LABS: CREATININE 0.9 mg/dL (0.6-1.3); GLUCOSE 156 mg/dL (70-105)
[2024-02-16 05:59] LABS: UREA NITROGEN BLOOD 17 mg/dL (9-23)
[2024-02-16 09:01] LABS: BG BASE EXCESS 1.1 mmol/L (-2.0-2.0); BG CARBOXYHEMOGLOBIN 0.1 % (0.5-1.5); BG FRACTION INSPIRED OXYGEN 40; BG HCO3 ACT 25.1 mmol/L (22.0-26.0); BG METHEMOGLOBIN 0.3 % (0.0-1.5); BG OXYHEMOGLOBIN 98.6 % (94.0-97.0); BG PCO2 37.9 mmHg (35.0-45.0); BG PH 7.439 (7.350-7.450); BG PO2 159.7 mmHg (75.0-100.0); BG SAMPLE SITE RIGHT RADIAL; BG TOTAL HEMOGLOBIN 12.8 g/dL (12.0-18.0); BG VENT MODE VENT - SIMV
[2024-02-16] MEDS ORDERED: IPRATROPIUM/ALBUTEROL 0.5-3(2.5)MG/3ML NEB HHN PRN (21:15)
[2024-02-16] MEDS: LORAZEPAM 2MG/ML INJ ONE (21:23)
[2024-02-16] MEDS: LORAZEPAM 4MG/ML INJ IV ONE (21:25)
[2024-02-16] MEDS: LABETALOL 5MG/ML 4ML INJ IV NR (21:34)
[2024-02-16] MEDS: FENTANYL CITRATE/PF 2,500 MCG in SODIUM CHLORIDE 0.9% 200 ML IV PRN (22:00)
[2024-02-16] MEDS: MIDAZOLAM 100MG/100ML PMX 100 ML IV PRN (22:01)
[2024-02-16 22:48] LABS: BG BASE EXCESS 1.8 mmol/L (-2.0-2.0); BG CARBOXYHEMOGLOBIN 0.4 % (0.5-1.5); BG DEOXYHEMOGLOBIN 2.8 % (0.0-5.0); BG FRACTION INSPIRED OXYGEN 50; BG HCO3 ACT 27.8 mmol/L (22.0-26.0); BG METHEMOGLOBIN 0.3 % (0.0-1.5); BG OXYGEN SATURATION 97.2 % (92.0-98.5); BG OXYHEMOGLOBIN 96.5 % (94.0-97.0); BG PCO2 49.2 mmHg (35.0-45.0); BG PO2 94.8 mmHg (75.0-100.0); BG SAMPLE SITE LEFT RADIAL; BG TOTAL HEMOGLOBIN 13.8 g/dL (12.0-18.0); BG VENT MODE VENT - AC
[2024-02-17] VITALS (91 sets, daily range): BP systolic 96–192; BP diastolic 61–100; PULSE 74–100; RESP 14–21; TEMP 98.6–98.8
[2024-02-17 00:13] LABS: CALCIUM 9.6 mg/dL (8.7-10.4); CHLORIDE 106 mEq/L (98-107); POTASSIUM 4.2 mEq/L (3.5-5.1); SODIUM 140 mEq/L (136-145)
[2024-02-17 00:14] LABS: CARBON DIOXIDE 27 mEq/L (21-32)
[2024-02-17 00:19] LABS: CREATININE 0.9 mg/dL (0.6-1.3); GLUCOSE 133 mg/dL (70-105); UREA NITROGEN BLOOD 19 mg/dL (9-23)
[2024-02-17] MEDS: IPRATROPIUM/ALBUTEROL 0.5-3(2.5)MG/3ML NEB HHN SCH (00:40)
[2024-02-17] MEDS: ACETYLCYSTEINE 200MG/ML 20% VIAL 4ML INH SCH (00:40)
[2024-02-17] MEDS: DEXT 5%/0.45% NACL 1000ML 1,000 ML IV SCH (05:53)
[2024-02-17 07:00] LABS: HEMATOCRIT 33.2 % (42.0-52.0); HEMOGLOBIN 11.1 g/dL (14.0-18.0); MEAN CORPUSCULAR HEMOGLOBIN 31.8 pg (28.0-32.0); MEAN CORPUSCULAR HGB CONC 33.5 g/dL (31.0-37.0); MEAN CORPUSCULAR VOLUME 94.7 fL (80.0-94.0); PLATELET 389 x1000/uL (130-400); RED BLOOD CELL COUNT 3.51 mill/uL (4.7-6.1); RED CELL DISTRIBUTION WIDTH 13.1 % (11.6-14.6)
[2024-02-17 07:19] LABS: CARBON DIOXIDE 28 mEq/L (21-32); CHLORIDE 107 mEq/L (98-107); POTASSIUM 4.1 mEq/L (3.5-5.1); SODIUM 139 mEq/L (136-145)
[2024-02-17 07:20] LABS: CALCIUM 9.4 mg/dL (8.7-10.4)
[2024-02-17 07:24] LABS: CREATININE 0.9 mg/dL (0.6-1.3)
[2024-02-17 07:25] LABS: GLUCOSE 129 mg/dL (70-105); UREA NITROGEN BLOOD 18 mg/dL (9-23)
[2024-02-17 09:43] LABS: BG BASE EXCESS 3.8 mmol/L (-2.0-2.0); BG CARBOXYHEMOGLOBIN 0.3 % (0.5-1.5); BG DEOXYHEMOGLOBIN 1.9 % (0.0-5.0); BG FRACTION INSPIRED OXYGEN 50; BG HCO3 ACT 28.4 mmol/L (22.0-26.0); BG METHEMOGLOBIN 0.2 % (0.0-1.5); BG OXYGEN SATURATION 98.1 % (92.0-98.5); BG OXYHEMOGLOBIN 97.6 % (94.0-97.0); BG PCO2 42.7 mmHg (35.0-45.0); BG PO2 112.8 mmHg (75.0-100.0); BG SAMPLE SITE RIGHT RADIAL; BG TOTAL HEMOGLOBIN 12.1 g/dL (12.0-18.0); BG VENT MODE VENT - AC
[2024-02-17] MEDS: METHYLPREDNISOLONE SOD SUCC 125MG/2ML (ACT-O-VIAL) IV NR (13:50)
[2024-02-18] VITALS (91 sets, daily range): BP systolic 89–188; BP diastolic 57–162; PULSE 68–118; RESP 16–27; TEMP 98.1–100.2
[2024-02-18 09:50] LABS: BG BASE EXCESS 3.2 mmol/L (-2.0-2.0); BG CARBOXYHEMOGLOBIN 0.3 % (0.5-1.5); BG DEOXYHEMOGLOBIN 1.5 % (0.0-5.0); BG FRACTION INSPIRED OXYGEN 50; BG HCO3 ACT 27.6 mmol/L (22.0-26.0); BG METHEMOGLOBIN 0.4 % (0.0-1.5); BG OXYGEN SATURATION 98.5 % (92.0-98.5); BG OXYHEMOGLOBIN 97.8 % (94.0-97.0); BG PCO2 41.5 mmHg (35.0-45.0); BG PH 7.441 (7.350-7.450); BG SAMPLE SITE RIGHT RADIAL; BG TOTAL HEMOGLOBIN 12.3 g/dL (12.0-18.0); BG VENT MODE VENT - AC
[2024-02-18 11:19] LABS: HEMATOCRIT 35.4 % (42.0-52.0); HEMOGLOBIN 11.4 g/dL (14.0-18.0); MEAN CORPUSCULAR HEMOGLOBIN 30.6 pg (28.0-32.0); MEAN CORPUSCULAR HGB CONC 32.3 g/dL (31.0-37.0); MEAN CORPUSCULAR VOLUME 94.8 fL (80.0-94.0); PLATELET 438 x1000/uL (130-400); RED BLOOD CELL COUNT 3.74 mill/uL (4.7-6.1); RED CELL DISTRIBUTION WIDTH 13.1 % (11.6-14.6); WHITE BLOOD COUNT 17.4 x1000/uL (4.5-11.0)
[2024-02-18 11:43] LABS: CHLORIDE 107 mEq/L (98-107); SODIUM 140 mEq/L (136-145)
[2024-02-18 11:44] LABS: CALCIUM 9.4 mg/dL (8.7-10.4); CARBON DIOXIDE 26 mEq/L (21-32)
[2024-02-18 11:49] LABS: CREATININE 0.8 mg/dL (0.6-1.3); GLUCOSE 128 mg/dL (70-105); UREA NITROGEN BLOOD 23 mg/dL (9-23)
[2024-02-19] VITALS (102 sets, daily range): BP systolic 111–186; BP diastolic 59–167; PULSE 77–111; RESP 15–33; TEMP 98.2–100.4
[2024-02-19] MEDS ORDERED: DEXT 5%/0.45% NACL 1000ML 1,000 ML IV SCH (09:30)
[2024-02-19] MEDS: DEXT 5%/0.45% NACL 1000ML 1,000 ML IV SCH (09:59)
[2024-02-20] VITALS (95 sets, daily range): BP systolic 106–163; BP diastolic 60–103; PULSE 74–105; RESP 11–30; TEMP 98.5–99.5
[2024-02-20 04:52] LABS: HEMATOCRIT 34.5 % (42.0-52.0); HEMOGLOBIN 11.5 g/dL (14.0-18.0); MEAN CORPUSCULAR HEMOGLOBIN 31.6 pg (28.0-32.0); MEAN CORPUSCULAR HGB CONC 33.3 g/dL (31.0-37.0); MEAN CORPUSCULAR VOLUME 94.6 fL (80.0-94.0); PLATELET 498 x1000/uL (130-400); RED BLOOD CELL COUNT 3.64 mill/uL (4.7-6.1); RED CELL DISTRIBUTION WIDTH 13.1 % (11.6-14.6); WHITE BLOOD COUNT 13.3 x1000/uL (4.5-11.0)
[2024-02-20 05:00] LABS: CARBON DIOXIDE 27 mEq/L (21-32); CHLORIDE 107 mEq/L (98-107); POTASSIUM 4.1 mEq/L (3.5-5.1); SODIUM 140 mEq/L (136-145)
[2024-02-20 05:02] LABS: CALCIUM 9.5 mg/dL (8.7-10.4)
[2024-02-20 05:05] LABS: CREATININE 0.8 mg/dL (0.6-1.3)
[2024-02-20 05:06] LABS: GLUCOSE 133 mg/dL (70-105); UREA NITROGEN BLOOD 16 mg/dL (9-23)
[2024-02-20 05:08] LABS: PHOSPHORUS 3.6 mg/dL (2.5-4.9)
[2024-02-20] MEDS: SCOPOLAMINE HYDROBROMIDE PATCH 72HR TD SCH (09:00)
[2024-02-20 09:51] LABS: BG BASE EXCESS 2.5 mmol/L (-2.0-2.0); BG CARBOXYHEMOGLOBIN 0.3 % (0.5-1.5); BG DEOXYHEMOGLOBIN 3.4 % (0.0-5.0); BG FRACTION INSPIRED OXYGEN 40; BG HCO3 ACT 26.7 mmol/L (22.0-26.0); BG METHEMOGLOBIN 0.3 % (0.0-1.5); BG OXYGEN SATURATION 96.6 % (92.0-98.5); BG PH 7.443 (7.350-7.450); BG SAMPLE SITE RIGHT RADIAL; BG TOTAL HEMOGLOBIN 12.3 g/dL (12.0-18.0); BG VENT MODE VENT - AC
[2024-02-20] MEDS: POLYETHYLENE GLYCOL 3350 (17GM) 1 DOSE PACK PO SCH (16:33)
[2024-02-21] VITALS (102 sets, daily range): BP systolic 120–175; BP diastolic 65–103; PULSE 79–132; RESP 12–30; TEMP 99–100.1
[2024-02-21] MEDS ORDERED: DEXAMETHASONE 4MG/ML 1ML VIAL ONE (11:17)
[2024-02-21] MEDS: LABETALOL 5MG/ML 4ML INJ IV NR (11:17)
[2024-02-21] MEDS ORDERED: ONDANSETRON HCL 4MG/2ML INJ ONE (11:17)
[2024-02-21] MEDS ORDERED: ROCURONIUM BROMIDE 10MG/ML VIAL 5ML IV ONE ×2 (11:17→15:26)
[2024-02-22] VITALS (73 sets, daily range): BP systolic 109–161; BP diastolic 61–95; PULSE 80–128; RESP 16–28; TEMP 99–101.8
[2024-02-22 04:38] LABS: HEMATOCRIT. 34.5 % (42.0-52.0); HEMOGLOBIN. 11.5 g/dL (14.0-18.0); MEAN CORPUSCULAR HEMOGLOBIN 31.9 pg (28.0-32.0); MEAN CORPUSCULAR HGB CONC 33.4 g/dL (31.0-37.0); MEAN CORPUSCULAR VOLUME 95.6 fL (80.0-94.0); MEAN PLATELET VOLUME 7.3 fl (7.4-10.4); PLATELET 543 x1000/uL (130-400); RED BLOOD CELL COUNT 3.61 mill/uL (4.7-6.1); WHITE BLOOD COUNT 20.5 x1000/uL (4.5-11.0)
[2024-02-22 04:42] LABS: DIFFERENTIAL COMMENT 1
[2024-02-22 04:44] LABS: CARBON DIOXIDE 25 mEq/L (21-32); CHLORIDE 108 mEq/L (98-107); POTASSIUM 4.4 mEq/L (3.5-5.1); SODIUM 139 mEq/L (136-145)
[2024-02-22 04:45] LABS: CALCIUM 9.4 mg/dL (8.7-10.4)
[2024-02-22 04:50] LABS: CREATININE 0.9 mg/dL (0.6-1.3); GLUCOSE 135 mg/dL (70-105); UREA NITROGEN BLOOD 17 mg/dL (9-23)
[2024-02-22 04:52] LABS: PHOSPHORUS 3.5 mg/dL (2.5-4.9)
[2024-02-22 05:01] LABS: INR 1.1; PROTHROMBIN TIME 11.7 sec (9.6-11.0)
[2024-02-22] MEDS: SODIUM CHLORIDE 0.9% 500 ML IV NR (07:03)
[2024-02-22 09:30] LABS: PLATELET ESTIMATE INCREASED
[2024-02-22] MEDS ORDERED: PROPOFOL 200MG/20ML VIAL IV ONE (16:21)
[2024-02-22] MEDS ORDERED: DEXAMETHASONE 4MG/ML 1ML VIAL ONE (16:23)
[2024-02-22] MEDS ORDERED: ONDANSETRON HCL 4MG/2ML INJ ONE (16:23)
[2024-02-22] MEDS: CEFAZOLIN SODIUM 1000MG/VIAL IV NR (18:47)
[2024-02-23] VITALS (57 sets, daily range): BP systolic 103–140; BP diastolic 57–81; PULSE 79–123; RESP 16–34; TEMP 99.5–101.2
[2024-02-23 05:05] LABS: HEMATOCRIT 33.4 % (42.0-52.0); HEMOGLOBIN 11.1 g/dL (14.0-18.0); MEAN CORPUSCULAR HEMOGLOBIN 31.3 pg (28.0-32.0); MEAN CORPUSCULAR HGB CONC 33.1 g/dL (31.0-37.0); MEAN CORPUSCULAR VOLUME 94.5 fL (80.0-94.0); PLATELET 536 x1000/uL (130-400); RED BLOOD CELL COUNT 3.54 mill/uL (4.7-6.1); WHITE BLOOD COUNT 18.2 x1000/uL (4.5-11.0)
[2024-02-23 05:12] LABS: CHLORIDE 108 mEq/L (98-107); POTASSIUM 4.1 mEq/L (3.5-5.1); SODIUM 140 mEq/L (136-145)
[2024-02-23 05:14] LABS: CALCIUM 9.5 mg/dL (8.7-10.4); CARBON DIOXIDE 25 mEq/L (21-32)
[2024-02-23 05:19] LABS: CREATININE 0.8 mg/dL (0.6-1.3); GLUCOSE 127 mg/dL (70-105); UREA NITROGEN BLOOD 20 mg/dL (9-23)
[2024-02-23 05:20] LABS: ALANINE AMINOTRANSFERASE 141 IU/L (10-49); ALBUMIN 3.6 g/dL (3.2-4.8); ASPARTATE AMINOTRANSFERASE 79 IU/L (<34)
[2024-02-23 05:21] LABS: BILIRUBIN TOTAL 0.8 mg/dL (0.1-1.0); PHOSPHORUS 3.7 mg/dL (2.5-4.9); PROTEIN TOTAL 7.1 g/dL (6.0-8.3)
[2024-02-23] MEDS: ENOXAPARIN 30MG/0.3ML SYR SUBCUT SCH (11:21)
[2024-02-24] VITALS (33 sets, daily range): BP systolic 123–150; BP diastolic 70–94; PULSE 84–118; RESP 16–23; TEMP 99.1–101.5
[2024-02-24] MEDS: IPRATROPIUM/ALBUTEROL 0.5-3(2.5)MG/3ML NEB HHN SCH (02:26)
[2024-02-24 09:17] LABS: HEMOGLOBIN 11.1 g/dL (14.0-18.0); MEAN CORPUSCULAR HEMOGLOBIN 30.9 pg (28.0-32.0); MEAN CORPUSCULAR HGB CONC 32.8 g/dL (31.0-37.0); MEAN CORPUSCULAR VOLUME 94.4 fL (80.0-94.0); PLATELET 495 x1000/uL (130-400); WHITE BLOOD COUNT 12.2 x1000/uL (4.5-11.0)
[2024-02-24 09:28] LABS: CARBON DIOXIDE 24 mEq/L (21-32); CHLORIDE 107 mEq/L (98-107); POTASSIUM 3.9 mEq/L (3.5-5.1); SODIUM 139 mEq/L (136-145)
[2024-02-24 09:29] LABS: CALCIUM 9.6 mg/dL (8.7-10.4)
[2024-02-24 09:33] LABS: CREATININE 0.8 mg/dL (0.6-1.3); GLUCOSE 178 mg/dL (70-105)
[2024-02-24 09:34] LABS: UREA NITROGEN BLOOD 20 mg/dL (9-23)
[2024-02-24] MEDS: ASPIRIN 81MG TABLET PO SCH (09:53)
[2024-02-24] MEDS: ACETAMINOPHEN 650MG/20.3ML UDC PO NR (14:37)
[2024-02-24] MEDS: LACTULOSE 20G/30ML UDC GT SCH (18:58)
[2024-02-24] MEDS: SENNOSIDES/DOCUSATE SOD 8.6/50MG TABLET PO SCH (21:38)
[2024-02-25] VITALS (21 sets, daily range): BP systolic 119–160; BP diastolic 60–87; PULSE 80–106; RESP 15–24; TEMP 98.7–100.9
[2024-02-25] MEDS: ACETAMINOPHEN 650MG/20.3ML UDC PO PRN (04:17)
[2024-02-25 05:55] LABS: HEMOGLOBIN 11.1 g/dL (14.0-18.0); MEAN CORPUSCULAR HEMOGLOBIN 31.2 pg (28.0-32.0); MEAN CORPUSCULAR HGB CONC 33.7 g/dL (31.0-37.0); MEAN CORPUSCULAR VOLUME 92.7 fL (80.0-94.0); PLATELET 491 x1000/uL (130-400); RED BLOOD CELL COUNT 3.56 mill/uL (4.7-6.1); RED CELL DISTRIBUTION WIDTH 12.9 % (11.6-14.6); WHITE BLOOD COUNT 13.6 x1000/uL (4.5-11.0)
[2024-02-25 06:12] LABS: CARBON DIOXIDE 27 mEq/L (21-32); CHLORIDE 106 mEq/L (98-107); POTASSIUM 3.7 mEq/L (3.5-5.1); SODIUM 140 mEq/L (136-145)
[2024-02-25 06:13] LABS: CALCIUM 9.7 mg/dL (8.7-10.4)
[2024-02-25 06:17] LABS: CREATININE 0.8 mg/dL (0.6-1.3)
[2024-02-25 06:18] LABS: GLUCOSE 184 mg/dL (70-105); UREA NITROGEN BLOOD 18 mg/dL (9-23)
[2024-02-25 06:20] LABS: PHOSPHORUS 3.7 mg/dL (2.5-4.9)
[2024-02-25] MEDS: DOCUSATE SODIUM SUGAR FREE 100MG/10ML UDC NG SCH (08:52)
[2024-02-25] MEDS: SORBITOL 70% SOLN 30ML PEG SCH (14:18)
[2024-02-26] VITALS (23 sets, daily range): BP systolic 121–148; BP diastolic 68–112; PULSE 86–113; RESP 16–20; TEMP 98.2–101.4
[2024-02-26] MEDS ORDERED: LORAZEPAM 2MG/ML INJ IV PRN (08:45)
[2024-02-26 10:29] LABS: BASOPHILS % 0.5 % (0.0-2.0); EOSINOPHILS % 0.6 % (0.0-5.0); HEMATOCRIT. 32.6 % (42.0-52.0); HEMOGLOBIN. 10.8 g/dL (14.0-18.0); LYMPHOCYTES % 8.9 % (20.0-50.0); MEAN CORPUSCULAR HEMOGLOBIN 31.3 pg (28.0-32.0); MEAN CORPUSCULAR HGB CONC 33.3 g/dL (31.0-37.0); MEAN PLATELET VOLUME 7.8 fl (7.4-10.4); PLATELET 509 x1000/uL (130-400); RED BLOOD CELL COUNT 3.47 mill/uL (4.7-6.1); RED CELL DISTRIBUTION WIDTH 12.9 % (11.6-14.6); WHITE BLOOD COUNT 13.7 x1000/uL (4.5-11.0)
[2024-02-26] MEDS ORDERED: DEXTROSE 50% WATER 50ML SYRINGE IV PRN (10:30)
[2024-02-26 10:31] LABS: CHLORIDE 105 mEq/L (98-107); POTASSIUM 4.3 mEq/L (3.5-5.1); SODIUM 139 mEq/L (136-145)
[2024-02-26 10:32] LABS: CARBON DIOXIDE 26 mEq/L (21-32)
[2024-02-26 10:37] LABS: CREATININE 0.6 mg/dL (0.6-1.3); GLUCOSE 172 mg/dL (70-105)
[2024-02-26 10:38] LABS: UREA NITROGEN BLOOD 15 mg/dL (9-23)
[2024-02-26] MEDS: BLOOD SUGAR DIAGNOSTIC STRIP TEST SCH (11:45)
[2024-02-26] MEDS: INSULIN LISPRO 100 UNITS/ML SUBCUT SCH (11:55)
[2024-02-26] MEDS ORDERED: BLOOD SUGAR DIAGNOSTIC STRIP TEST SCH (12:30)
[2024-02-26] MEDS ORDERED: INSULIN LISPRO 100 UNITS/ML SUBCUT SCH (13:00)
[2024-02-26 13:26] LABS: CREATINE KINASE 63 IU/L (46-171)
[2024-02-26] MEDS: ACETYLCYSTEINE 200MG/ML 20% VIAL 4ML INH SCH (14:17)
[2024-02-26] MEDS: ONDANSETRON HCL 4MG/2ML INJ IV PRN (23:11)
[2024-02-27] VITALS (18 sets, daily range): BP systolic 109–122; BP diastolic 64–73; PULSE 83–98; RESP 16–25; TEMP 97.1–98
[2024-02-27 06:38] LABS: BASOPHILS % 0.6 % (0.0-2.0); EOSINOPHILS % 1.2 % (0.0-5.0); HEMATOCRIT. 31.7 % (42.0-52.0); HEMOGLOBIN. 10.7 g/dL (14.0-18.0); LYMPHOCYTES % 11.7 % (20.0-50.0); MEAN CORPUSCULAR HEMOGLOBIN 31.3 pg (28.0-32.0); MEAN CORPUSCULAR HGB CONC 33.7 g/dL (31.0-37.0); MEAN CORPUSCULAR VOLUME 92.8 fL (80.0-94.0); MONOCYTES % 11.6 % (2.0-8.0); NEUTROPHILS % 74.9 % (40.0-76.0); PLATELET 469 x1000/uL (130-400); RED BLOOD CELL COUNT 3.41 mill/uL (4.7-6.1); RED CELL DISTRIBUTION WIDTH 12.9 % (11.6-14.6); WHITE BLOOD COUNT 13.1 x1000/uL (4.5-11.0)
[2024-02-27 06:43] LABS: CALCIUM 9.9 mg/dL (8.7-10.4); CARBON DIOXIDE 29 mEq/L (21-32); CHLORIDE 107 mEq/L (98-107); POTASSIUM 4.3 mEq/L (3.5-5.1); SODIUM 140 mEq/L (136-145)
[2024-02-27 06:48] LABS: CREATININE 0.8 mg/dL (0.6-1.3); GLUCOSE 135 mg/dL (70-105); UREA NITROGEN BLOOD 23 mg/dL (9-23)
[2024-02-27 06:50] LABS: ALANINE AMINOTRANSFERASE 242 IU/L (10-49); ALBUMIN 3.6 g/dL (3.2-4.8); ASPARTATE AMINOTRANSFERASE 134 IU/L (<34)
[2024-02-27 06:51] LABS: BILIRUBIN DIRECT 0.2 mg/dL (<=3.0); BILIRUBIN TOTAL 0.4 mg/dL (0.1-1.0); PHOSPHORUS 4.3 mg/dL (2.5-4.9); PROTEIN TOTAL 7.2 g/dL (6.0-8.3)
[2024-02-27] MEDS ORDERED: LACTULOSE 20G/30ML UDC PO PRN (14:00)
[2024-02-28] VITALS (21 sets, daily range): BP systolic 106–132; BP diastolic 63–77; PULSE 85–108; RESP 16–23; TEMP 97.7–98.4
[2024-02-29] VITALS (22 sets, daily range): BP systolic 124–146; BP diastolic 62–87; PULSE 82–99; RESP 16–35; TEMP 97.3–99
[2024-02-29] MEDS ORDERED: IPRATROPIUM/ALBUTEROL 0.5-3(2.5)MG/3ML NEB HHN SCH (12:00)
[2024-02-29] MEDS: IPRATROPIUM/ALBUTEROL 0.5-3(2.5)MG/3ML NEB HHN PRN (14:08)
[2024-03-01] VITALS (21 sets, daily range): BP systolic 118–144; BP diastolic 66–85; PULSE 85–100; RESP 16–20; TEMP 97–98; O2SAT 98
== END 2024-03-01 22:10 | DRG 4 ==
LOC: ER 18:50 → 7EST 20:16 → MICUNO 02-09 12:33 → 5EST 02-24 02:00
PROVIDERS: ADMIT Internal Medicine; ATTEND Internal Medicine
PROC: 5A1955Z Respiratory Ventilation, Greater than 96 Consecutive Hours (ICD-10-PCS; principal; 2024-02-09)
PROC: 0BH17EZ Insertion of Endotracheal Airway into Trachea, Via Natural or Artificial Opening (ICD-10-PCS; 2024-02-09)
PROC: B246ZZ4 Ultrasonography of Right and Left Heart, Transesophageal (ICD-10-PCS; 2024-02-13)
PROC: 0B110F4 Bypass Trachea to Cutaneous with Tracheostomy Device, Open Approach (ICD-10-PCS; 2024-02-21)
PROC: 0GBJ0ZZ Excision of Thyroid Gland Isthmus, Open Approach (ICD-10-PCS; 2024-02-21)
PROC: 0DH68UZ Insertion of Feeding Device into Stomach, Via Natural or Artificial Opening Endoscopic (ICD-10-PCS; 2024-02-22)
DX: T40.991A Poisoning by other psychodysleptics [hallucinogens], accidental (unintentional), initial encounter (principal); G92.8 Other toxic encephalopathy; A41.9 Sepsis, unspecified organism; I63.89 Other cerebral infarction; J96.01 Acute respiratory failure with hypoxia; S51.012A Laceration without foreign body of left elbow, initial encounter; D72.823 Leukemoid reaction; N17.9 Acute kidney failure, unspecified; E66.9 Obesity, unspecified; I16.1 Hypertensive emergency; F12.929 Cannabis use, unspecified with intoxication, unspecified; I10 Essential (primary) hypertension; I25.10 Atherosclerotic heart disease of native coronary artery without angina pectoris; Z79.82 Long term (current) use of aspirin; Z93.1 Gastrostomy status; X58.XXXA Exposure to other specified factors, initial encounter; R13.12 Dysphagia, oropharyngeal phase; K44.9 Diaphragmatic hernia without obstruction or gangrene; K29.60 Other gastritis without bleeding; N39.0 Urinary tract infection, site not specified; I70.90 Unspecified atherosclerosis; Y93.9 Activity, unspecified; Z95.5 Presence of coronary angioplasty implant and graft; Z79.899 Other long term (current) drug therapy; Z99.11 Dependence on respirator [ventilator] status; Z68.30 Body mass index [BMI] 30.0-30.9, adult; Y92.89 Other specified places as the place of occurrence of the external cause; Z86.73 Personal history of transient ischemic attack (TIA), and cerebral infarction without residual deficits; Z79.02 Long term (current) use of antithrombotics/antiplatelets; Y99.8 Other external cause status; Z74.01 Bed confinement status
CPT/HCPCS: 31500; 36415; 36600; 70551; 71045; 76700; 80048; 80053; 80061; 80076; 80202; 80305; 80307; 80320; 80329; 81003; 82040; 82140; 82375; 82550; 82553; 82805; 82962; 83036; 83605; 83735; 84100; 84145; 84478; 84484; 85025; 85027; 87070; 93005; 93306; 93312; 93880; 93971; 94002; 94003; 94640; 94667; 97161; 99291; A6261; C1725; C1893; J0360; J0690; J1100; J1650; J1815; J2060; J2250; J2310; J2405; J2543; J2704; J2930; J3010; J3370; J3475; J3490; J7040; J7050; J7060; J7608; A4315; A5200; G0480